=== PATIENT | female | born 1985 | race Caucasian/White ===

== ENCOUNTER 2020-04-08 08:49 | Outpatient (CLI) | payer OTHER | END 2020-04-08 20:57 | disposition home or self-care (01) | LOC: SLB 08:49 | PROVIDERS: ATTEND Specialist | DX: O09.899 Supervision of other high risk pregnancies, unspecified trimester (principal); Z3A.00 Weeks of gestation of pregnancy not specified | CPT/HCPCS: 36415; 82947-TC; 82950-TC ==

== ENCOUNTER 2020-05-19 14:22 | Outpatient (CLI) | payer OTHER, SELFPAY | END 2020-05-19 19:30 | disposition home or self-care (01) | LOC: SLB 14:22 | PROVIDERS: ATTEND Specialist | DX: Z20.822 Contact with and (suspected) exposure to COVID-19 (principal) | CPT/HCPCS: 36415 ==

== ENCOUNTER 2020-05-28 02:58 | Inpatient (IN) | payer OTHER, SELFPAY ==
[~2020-05-28] VITALS: Ht 172.7 cm; Wt 90.3 kg
[2020-05-28] MEDS ORDERED: OXYTOCIN/0.9 % SODIUM CHLORIDE 1,000 ML IV ONE ×2 (03:25→03:45)
[2020-05-28] MEDS ORDERED: HYDROCORTISONE 0.5% CREAM 28.4 GM CREAM.GM. TP PRN (03:45)
[2020-05-28] MEDS ORDERED: METHYLERGONOVINE MALEATE 0.2 MG TABLET PO PRN (03:45)
[2020-05-28] MEDS ORDERED: HYDROcodone/ACETAMIN 5-325 MG TAB (NORCO/ VICODIN) PO PRN (03:45)
[2020-05-28] MEDS ORDERED: DERMOPLAST SPRAY TP PRN (03:45)
[2020-05-28] MEDS ORDERED: RHO(D) IMMUNE GLOBULIN/MALTOSE 1500 UNITS/1.3 ML (WINHRO) IM PRN (03:45)
[2020-05-28] MEDS ORDERED: OXYTOCIN/0.9 % SODIUM CHLORIDE 1,000 ML IV SCH ×2 (03:45)
[2020-05-28] MEDS ORDERED: MEASLES,MUMPS&RUBELLA VACC/PF 12500 UNIT/0.5 ML VIAL SUBQ PRN (03:45)
[2020-05-28] MEDS ORDERED: DIPH-TET-PERTUS Vaccine 0.5 ML VIAL (ADACEL) I.M. PRN (03:45)
[2020-05-28] MEDS ORDERED: LR 1,000 ML IV SCH (03:45)
[2020-05-28] MEDS ORDERED: LANOLIN 7 GM OINT. TP PRN (03:45)
[2020-05-28] MEDS ORDERED: WITCH HAZEL LEAF 1 MED.PAD MED.PAD TP PRN (03:45)
[2020-05-28] MEDS ORDERED: ANUSOL 1 EA SUPP.RECT (PREPARATION H) RC PRN (03:45)
[2020-05-28] MEDS ORDERED: TERBUTALINE SULFATE 1 MG/ML VIAL SUBCUT ONE (03:45)
[2020-05-28] MEDS ORDERED: OXYCODONE/ACETAMINOPHEN 5-325 TABLET PO PRN ×2 (03:45)
[2020-05-28] MEDS ORDERED: SENNOSIDES/DOCUSATE SODIUM 1 TAB TABLET(SENOKOT-S) PO PRN (03:45)
[2020-05-28] MEDS ORDERED: NALOXONE HCL 0.4 MG/ML AMP (NARCAN) IVP PRN (03:45)
[2020-05-28 04:17] LABS: BASOPHILS # (AUTO) 0.3 K/uL (0.0-0.2); BASOPHILS % (AUTO) 3.6 % (0.0-2.0); EOSINOPHILS # (AUTO) 0.1 K/uL (0.0-0.4); EOSINOPHILS % (AUTO) 1.2 % (0.0-4.0); HEMATOCRIT 40.5 % (36-48); HEMOGLOBIN 13.6 g/dL (12.0-16.0); LYMPHOCYTES # (AUTO) 1.6 K/uL (1.0-5.5); LYMPHOCYTES % (AUTO) 21.1 % (20.5-51.5); MEAN CORPUSCULAR HEMOGLOBIN 31 pg (27-31); MEAN CORPUSCULAR HGB CONC 34 % (32-36); MEAN CORPUSCULAR VOLUME 93 fL (79.0-98.0); MONOCYTES # (AUTO) 0.4 K/uL (0.0-1.0); MONOCYTES % (AUTO) 5.1 % (1.7-9.3); NEUTROPHILS # (AUTO) 5.3 K/uL (1.8-7.7); PLATELET COUNT (AUTO) 133 K/uL (130-430); RED BLOOD CELL COUNT(AUTO) 4.35 MIL/uL (4.2-6.2); RED CELL DISTRIBUTION WIDTH 15.5 % (9.0-15.0); WHITE BLOOD COUNT (AUTO) 7.7 K/uL (4.8-10.8)
[2020-05-28] MEDS: DOCUSATE SODIUM 100 MG CAPSULE PO PRN ×2 (05:22→23:28)
[2020-05-28] MEDS: IBUPROFEN 600 MG TABLET PO SCH ×4 (05:22→23:28)
[2020-05-28] MEDS ORDERED: LIDOCAINE PF 1% 30ML(POUR BTL) INJ ONE (11:20)
[2020-05-28] MEDS ORDERED: TEMAZEPAM 15 MG CAPSULE PO PRN (21:00)
[2020-05-28] MEDS ORDERED: MEASLES,MUMPS&RUBELLA VACC/PF 12500 UNIT/0.5 ML VIAL SUBQ ONE (23:59)
== END 2020-05-29 03:40 | disposition home or self-care (01) | DRG 807 ==
LOC: SPU 02:58 → UNDOADMIN 03:05 → SPU 03:05
PROVIDERS: ADMIT Specialist; ATTEND Specialist
PROC: 10E0XZZ Delivery of Products of Conception, External Approach (ICD-10-PCS; principal; 2020-05-28)
DX: O62.3 Precipitate labor (principal); Z37.0 Single live birth; O70.1 Second degree perineal laceration during delivery; Z3A.39 39 weeks gestation of pregnancy
CPT/HCPCS: 36415; 85025; 86592; 86886; 86900; 86901; J2001; J2590